=== PATIENT | female | born 1995 | race Caucasian/White ===

== ENCOUNTER 2017-02-11 23:12 | Emergency (ER) | payer OTHER ==
[~2017-02-11] VITALS: Ht 154.9 cm; Wt 74.4 kg
[~2017-02-11 23:12] MED LIST: ACET50TA PO; IBUP-1114 PO; PRENTAB55 PO
[2017-02-11] MEDS ORDERED: ZANTTAB PO (23:29)
[2017-02-11] MEDS ORDERED: CLAR10CA3 PO (23:29)
[2017-02-12] MEDS ORDERED: ACETAMINOPHEN 325 MG TAB PO ONE (00:15)
--- NOTE | 2017-02-12 00:50 | REPUSA ---
Clinical history: Pain. Findings: Real-time transabdominal and transvaginal ultrasound images of the pelvis were obtained. An anteverted uterus is noted, measuring 8.6 x 4.8 x 8.1 cm. The uterus demonstrates normal echotexture and echogenicity.. There is a single intrauterine gestation noted. The mean sac diameter is 5.9 cm. No pole or yolk sac is identified at this time. The right ovary measures 3.2 x 2.8 x 3.3 cm. Th e left ovary measures 2.5 x 1.1 x 1.9 cm. No adnexal masses are seen. Color Doppler flow is seen with in both ovaries. There is no evidence of free fluid. Impression: Single intrauterine gestational sac measuring 5 weeks 2 days by ultrasound measurements. No pole is seen at this time. Differential diagnosis includes early versus blighted ovum. Follow-up with serial serum beta hCG levels is recommended as clinically indicated. HO
[2017-02-12 00:58] LABS: BASO # 0.1 K/mm3 (0.0-0.2); BASO % 0.7 % (0.0-1.0); EOS # 0.2 K/mm3 (0.0-0.50); EOS % 1.8 % (0.0-3.0); LARGE UNSTAINED CELL # 0.2 K/mm3 (0.0-0.4); LYMPH # 3.5 K/mm3 (1.5-6.5); MEAN CORPUSCULAR HEMOGLOBIN 29.7 pg (27.0-33.0); MEAN CORPUSCULAR HGB CONC 33.2 g/dl (32.0-36.5); MEAN CORPUSCULAR VOLUME 89.6 fl (80.0-96.0); MONO # 0.4 K/mm3 (0.0-0.8); MONO % 4.2 % (0.0-5.0); NEUTROPHILS # 5.9 K/mm3 (1.8-7.7); NEUTROPHILS % 57.2 % (36.0-66.0); PLATELET COUNT, AUTOMATED 341 k/mm3 (150-450); RED CELL DISTRIBUTION WIDTH 12.3 % (11.5-14.5); WHITE BLOOD COUNT 10.4 K/mm3 (4.0-10.0)
[2017-02-12] MEDS ORDERED: MACR100C3 PO (01:19)
[2017-02-12 01:27] VITALS: BP 127/77
[2017-02-12] MEDS ORDERED: NITROFURANTOIN (MACROBID) 100 MG CAP PO ONE (01:30)
== END 2017-02-12 01:35 | disposition home or self-care (01) ==
LOC: M ED 23:13
DX: O23.41 Unspecified infection of urinary tract in pregnancy, first trimester (principal); O99.511 Diseases of the respiratory system complicating pregnancy, first trimester; J45.909 Unspecified asthma, uncomplicated; O99.341 Other mental disorders complicating pregnancy, first trimester; F32.9 Major depressive disorder, single episode, unspecified; Z88.1 Allergy status to other antibiotic agents; Z88.5 Allergy status to narcotic agent; Z88.8 Allergy status to other drugs, medicaments and biological substances; Z79.899 Other long term (current) drug therapy; Z3A.01 Less than 8 weeks gestation of pregnancy